=== PATIENT | female | born 1960 | race Caucasian/White ===

== ENCOUNTER 2021-05-19 13:02 | Emergency (ER) | payer OTHER ==
[~2021-05-19 13:02] MED LIST: CIPRO500 MG PO; ONDANSETRON ODT4 MG SL; PHENERGAN25 M1 PO; PYRIDIUM200 MG PO
[2021-05-19 14:33] LABS: BASOPHIL 0.3 % (0-2); EOSINOPHIL 2.2 % (0-5); HCT 43.4 % (37.0-47.0); LYMPHOCYTE 39.6 % (15-48); MCH 30.4 pg (25.0-31.0); MCHC 32.3 g/dL (32.0-36.0); MCV 94.1 fL (78.0-100.0); MONOCYTE 7.4 % (0-12); MPV 8.9 fL (6.0-9.5); NEUTROPHIL 50.2 % (41-80); NRBC 0; PLT 236 K/uL (150-400); RBC 4.61 M/uL (4.20-5.40); RDW 13.1 % (11.5-14.0); WBC 3.2 K/uL (4.0-10.5)
[2021-05-19 14:51] LABS: BILIRUBIN - TOTAL 0.2 mg/dL (0.2-1.0); BUN/CREAT RATIO (CALC) 17.2 RATIO; CREATININE 0.58 mg/dL (0.51-0.95); GLOBULIN (CALCULATION) 4.7 g/dL; MAGNESIUM 2.1 mg/dL (1.8-2.4); POTASSIUM 3.7 mmol/L (3.5-5.1); TOTAL PROTEIN 8.7 g/dL (6.4-8.2)
[2021-05-19 16:13] LABS: CORONAVIRUS 2019 SARS-COV-2 POSITIVE (NEGATIVE); INFLUENZA A NAA NEGATIVE (NEGATIVE)
[2021-05-19] MEDS ORDERED: CYCLOBENZAPRINE10 MG PO (17:25)
== END 2021-05-19 18:33 | disposition home or self-care (01) ==
LOC: FER 13:02
PROVIDERS: Internal Medicine
DX: U07.1 COVID-19 (principal); R25.2 Cramp and spasm; I25.2 Old myocardial infarction; Z23 Encounter for immunization
CPT/HCPCS: 36415; 80053; 82550; 83735; 84145; 84443; 85025; J2405; J3360; J7120; M0243; Q0244; U0002